=== PATIENT | female | born 1980 | race Caucasian/White ===

== ENCOUNTER 2020-12-25 02:45 | Inpatient (IN) | payer SELFPAY, OTHER ==
[2017-09-16 07:21] VITALS: BMI 44.9
[2020-12-25] VITALS (22 sets, daily range): BP systolic 106–139; BP diastolic 42–69; PULSE 71–95; RESP 14–16; TEMP 36.4–37.5; O2SAT 97–99; BMI 45.9
[2020-12-25] MEDS: Lactated Ringers 1,000 ML 50 ML IV (03:15)
[2020-12-25 03:50] LABS: Absolute Lymphocyte Count 2.24 X10^3/uL (0.83-4.51); Basophil# 0.02 X10^3/uL; Basophil% 0.2 % (0-1); Eosinophils% 0.9 % (0-5); Hematocrit 40.8 % (37-47); Hemoglobin 13.4 g/dL (12.0-15.0); Lymphocyte # 2.24 X10^3/ul (0.83-4.51); Lymphocyte % 19.9 % (19-41); Mean Corp Hgb Conc 32.8 g/dL (32-36); Mean Corpuscular Hgb 31.1 pg (27.0-32.0); Mean Corpuscular Volume 94.7 fL (81-99); Mean Platelet Vol. 10.8 fl (6.2-12.0); Monocyte# 0.74 X10^3/uL; Monocyte% 6.6 % (0-10); NRBC Flagged by Analyzer 0 % (0-5); Neutrophil # 8.02 X10^3/uL (2.7-7.7); Neutrophil % 71.4 % (47-70); Platelet Count 263 K/mm3 (150-450); RBC Distribution Width CV 13.4 % (11.6-14.6); RBC Distribution Width SD 46.2 fl (35.1-43.9); Red Blood Count 4.31 M/mm3 (4.2-5.4); White Blood Count 11.2 K/mm3 (4.4-11.0)
[2020-12-25] MEDS: Oxytocin 30 units/NS 500 ml 30 UNITS/500 ML IV.SOLN IV (05:17)
[2020-12-25] MEDS: Ondansetron 4 MG/2 ML Vial IV (09:16)
[2020-12-25] MEDS: Oxytocin 30 units/NS 500 ml 30 UNITS/500 ML IV.SOLN 334 UNITS IV (11:28)
[2020-12-25] MEDS: Methylergonovine 0.2 MG/ML Ampul IM (11:30)
--- NOTE | 2020-12-25 11:38 | PCM.OPRPT ---
Vaginal Delivery Maternal Presentation: Medically Indicated Induction Method of Induction: Pitocin Medical Reason for Induction: - - 2 vessel cord, advanced maternal age, maternal obesity w/ BMI 45 Amniotic Membrane Rupture Type: Artificial Amniotic Fluid Description: Clear Final MINAL: 12/29/20 Final MINAL Source: US <20 weeks Gestational age: 39 Weeks and 3 Days Date of Procedure: 12/25/20 Pre-Operative Diagnosis: labor Post-Operative Diagnosis: same Surgery/ Procedure Performed: Spontaneous Vaginal Delivery Type of Anesthesia: None Description of Procedure: A vigorous male infant was delivered [RADHA] over an intact perineum. The remainder the infant was delivered with maternal pushing and gentle traction only in less than 15 seconds. The Pitocin infusion was initiated for active management of the third stage. The cord was clamped and cut [after 1 minute]. The was attended to by the waiting nursing staff. The placenta was delivered spontaneously and intact. The cervix and vagina were intact. There was mild atony without hemorrhage. Some clots were removed from the lower uterine segment and fundal massage was performed. 1 dose of IM Methergine was given to prevent hemorrhage. Uterus was then remaining firm. Sponge and needle counts were correct. A vaginal sweep was completed by me. Delivery time: 1124 Presentation: RADHA Placental Delivery Description: Spontaneous Placenta Disposition: [facility] Cord Vessel Description: 2 Vessels Cord Entanglement: None Drain: - - none Estimated Blood Loss: 400 A gender: Male (1 minute): 8 (5 minute): 9 Episiotomy Description: None Laceration: None Medications given after delivery: IV Pitocin, IM Methergin - x1 for atony without hemorrhage Complications: None
--- NOTE | 2020-12-25 11:42 | HP.PCM_ITS ---
History Date of Admission: 09/16/17 Final MINAL: 12/29/20 Final MINAL Source: US <20 weeks Gestational age: 39 Weeks and 3 Days History of this : This is a 40 year-old, avid a 4 para 2-0-1-2 presents at 39-3/7 weeks complaining contractions. She was found to be in prodromal labor. She was admitted for induction. is complicated to date by advanced maternal age, maternal obesity, and a two-vessel umbilical cord. Allergies No Known Allergies Allergy (Verified 12/25/20 03:09) Home Medications: Home Medications Multivitamins,Therapeutic [Multivitamin] 1 tablet PO DAILY 03/26/15 Pnv No.95/Ferrous Fum/Folic AC [ Caplet] 1 tablet PO DAILY 12/25/20 Smoking Status: Never smoker History Past Pregnancies: Past Pregnancies Delivery Date Name GA/ Weeks Outcome Route Wt Infant Sex Labor Length Anesthesia Delivery Location Provider FOB Expected Delivery Method: Spontaneous Vaginal Review of Systems Constitutional: Denies: Chills, Fever, Night Sweats Eyes: Denies: Blurred vision Cardiovascular: Denies: Chest Pain Respiratory: Denies: Cough, Shortness of Breath Neurological: Denies: Blurred vision, Double vision, Change in Speech, Slurred speech, Confusion Physical Exam Vitals: Vital Signs Temp Pulse BP Pulse Ox 99.5 F H 71 117/56 L 99 12/25/20 07:12 12/25/20 10:12 12/25/20 11:41 12/25/20 07:12 General: Alert, Cooperative, No apparent distress Cardiovascular: Regular rate Lungs: Normal air movement Abdomen: Soft, Non Tender, Non-Distended, Gravid, Appropriate for Gestational Age Extremities:: Other - edema 2+ Neurological: Cranial nerves II-XII grossly intact, Muscle tone normal. Negative for: Slurred Speech LABORATORY CLERK: Normal external genitalia Estimated gestational size: Appropriate for gestational size Presentation: Cephalic Assessment/Plan This is a 40 year-old, 4 para 2-0-1-2 presents at 39-3/7 weeks in prodromal labor. Induction of labor was performed with Pitocin. Estimated weight is less than 4500 g and pelvis clinically adequate to expect vaginal delivery. Group B strep prophylaxis is initiated. Have epidural if desires.
[2020-12-25] MEDS: Ibuprofen 600 MG Tablet PO (13:30)
[2020-12-25] MEDS: Acetaminophen 500 MG Tablet 1000 MG PO (21:09)
[2020-12-26 03:32] VITALS: BP 100/48; PULSE 70; RESP 16; TEMP 36.3
[2020-12-26] MEDS: Ibuprofen 600 MG Tablet PO (05:00)
[2020-12-26 08:28] VITALS: BP 117/52; PULSE 72; RESP 16; TEMP 36.4
--- NOTE | 2020-12-26 08:58 | PCM.PN.OB ---
Subjective: Patient seen at bedside. Feeling well. Denies any pain. Bottle feeding . Ambulating and voiding without difficulty. Desires discharge home today. - Physical Exam Vitals/I&O's: Vital Signs Temp Pulse Resp BP Pulse Ox 97.5 F L 72 16 117/52 L 99 12/26/20 08:28 12/26/20 08:28 12/26/20 08:28 12/26/20 08:28 12/25/20 07:12 Oxygen Delivery Method Room Air Weight: 251 lb 3.2 oz Body Mass Index (BMI) 45.9 Intake and Output for Last 24 Hours 12/24/20 12/25/20 12/26/20 23:59 23:59 23:59 Intake Total 1156.05 / 1156.05 Output Total 600 / 600 Balance 556.05 / 556.05 General: Alert, Oriented x3 HEENT: Atraumatic Oral: Moist Mucosa Neck: Supple Lungs: Normal air movement Cardiovascular: Regular rate Abdomen: Soft, Non Tender Extremities: No Calf Tenderness Skin: No rashes Current Medications Acetaminophen (Acetaminophen 500 Mg Tablet) 1,000 mg PO Q8H PRN PRN PRN Reason: Pain Score 1-10 Last Admin: 12/25/20 21:09 Dose: 1,000 mg Documented by: Bisacodyl (Bisacodyl 10 Mg Suppository) 10 mg RC UD PRN PRN Reason: If no BM Dibucaine (Dibucaine 30 Gm Tube) 1 applic TOPICAL TID PRN PRN; Protocol PRN Reason: Discomfort Hydrocortisone (Hydrocortisone 2.5% Crm) 1 applic TOPICAL TID PRN PRN; Protocol PRN Reason: Discomfort Ibuprofen (Ibuprofen 600 Mg Tablet) 600 mg PO Q6H PRN PRN PRN Reason: Pain Score 1-10 Last Admin: 12/26/20 05:00 Dose: 600 mg Documented by: Methylergonovine Maleate (Methylergonovine 0.2 Mg/Ml Ampul) 0.2 mg IM X1 PRN PRN Reason: Excess bleeding/uterine atony Ondansetron HCl (Ondansetron 4 Mg/2 Ml Vial) 4 mg IV Q4H PRN PRN PRN Reason: Nausea Multivit/Folic Acid/Iron ( Vits Tablet) 1 tablet PO DAILY@1200 RENETTA Senna/Docusate Sodium (Senna/Docusate Sodium 1 Tablet) 1 - 2 tablet PO DAILY PRN PRN PRN Reason: Constipation Simethicone (Simethicone 80 Mg Tablet) 80 mg PO PCHS PRN PRN Reason: Indigestion/Stomach pain Sodium Chloride (0.9% Saline Lock 10 Ml Syringe) 5 - 15 ml IV UD PRN PRN Reason: SALINE FLUSH Medical Necessity - Tobacco Use Smoking Status: Never smoker Assessment/Plan PPD 1 Routine care Discharge home
--- NOTE | 2020-12-26 09:02 | DCINST_ITS ---
Discharge Diet: No Restrictions May resume sexual activity in: 6-8 weeks Additional Instructions: If you experience any of the following, contact your healthcare provider. * Bleeding that soaks a pad every hour for 2 hours * Fever 100.4 or higher * Unrelieved incision or abdominal pain * Swelling, redness, discharge or bleeding from your incision or episiotomy site * Your incision begins to separate * Problems urinating (including inability to urinate or burning while urinating). * Visual changes * Severe headache * Flu-like symptoms * Pain or redness in one of both of your breasts * Pain, warmth, tenderness or swelling in your legs, especially the calf area * Frequent nausea and vomiting * Symptoms of depression or anxiety If you experience any of the following, call 911 or go to the nearest Emergency Room. * Chest pain * Problems breathing * Seizure activity * Partial or complete paralysis of a body part, slurred speech, weakness or drooping of the face, or a sudden inability to walk or hold your balance Allergies/Adverse Reactions: Allergies No Known Allergies Allergy (Verified 12/25/20 03:09) Medications to take at Discharge Multivitamins,Therapeutic [Multivitamin] 1 tablet PO DAILY 03/26/15 Pnv No.95/Ferrous Fum/Folic AC [ Caplet] 1 tablet PO DAILY 12/25/20 Primary Care Physician: Care Physician,No Primary [Primary Care Provider] - Test Results: Test results from this visit will be discussed in further detail at your follow- up appointment, if applicable.
--- NOTE | 2020-12-26 09:02 | PCM.DCVAG ---
Discharge Diet: No Restrictions May resume sexual activity in: 6-8 weeks Additional Instructions: If you experience any of the following, contact your healthcare provider. Bleeding that soaks a pad every hour for 2 hours Fever 100.4 or higher Unrelieved incision or abdominal pain Swelling, redness, discharge or bleeding from your incision or episiotomy site Your incision begins to separate Problems urinating (including inability to urinate or burning while urinating). Visual changes Severe headache Flu-like symptoms Pain or redness in one of both of your breasts Pain, warmth, tenderness or swelling in your legs, especially the calf area Frequent nausea and vomiting Symptoms of depression or anxiety If you experience any of the following, call 911 or go to the nearest Emergency Room. Chest pain Problems breathing Seizure activity Partial or complete paralysis of a body part, slurred speech, weakness or drooping of the face, or a sudden inability to walk or hold your balance Allergies/Adverse Reactions: Allergies No Known Allergies Allergy (Verified 12/25/20 03:09) Medications to take at Discharge Multivitamins,Therapeutic [Multivitamin] 1 tablet PO DAILY 03/26/15 Pnv No.95/Ferrous Fum/Folic AC [ Caplet] 1 tablet PO DAILY 12/25/20 Primary Care Physician: Care Physician,No Primary [Primary Care Provider] - Test Results: Test results from this visit will be discussed in further detail at your follow-up appointment, if applicable.
[2020-12-26] MEDS: Prenatal Vits Tablet 1 TABLET PO (11:37)
[2020-12-26 11:38] VITALS: BP 105/48; RESP 18; TEMP 36.4; O2SAT 76
== END 2020-12-26 15:35 | disposition home or self-care (01) | DRG 807 ==
PROVIDERS: Obstetrics & Gynecology; Admitting Provider Obstetrics & Gynecology; Visit Provider Obstetrics & Gynecology
DX: O99.214 Obesity complicating childbirth (principal); Z37.0 Single live birth; E66.9 Obesity, unspecified; O75.89 Other specified complications of labor and delivery; Z3A.39 39 weeks gestation of pregnancy
CPT/HCPCS: 59025; 59050; 85025; 86850; 86900; 86901; 99218; J7120; G0378; J2405

== ENCOUNTER 2023-03-15 06:40 | Inpatient (IN) | payer SELFPAY, OTHER ==
[2023-03-15] VITALS (17 sets, daily range): BP systolic 117–177; BP diastolic 51–79; PULSE 76–99; RESP 16; TEMP 36.3–37.3; O2SAT 95–100; BMI 46.3
[2023-03-15] MEDS: Lactated Ringers 1,000 ML 50 ML IV (07:40)
[2023-03-15 07:53] LABS: Absolute Lymphocyte Count 2.01 X10^3/uL (0.83-4.51); Absolute Neutrophil Count 8.6 X10^3/uL (2.0-7.7); Basophil# 0.03 X10^3/uL; Basophil% 0.3 % (0-1); Eosinophil# 0.09 X10^3/uL; Eosinophils% 0.8 % (0-5); Hematocrit 39.3 % (37-47); Hemoglobin 13.1 g/dL (12.0-15.0); Lymphocyte # 2.01 X10^3/ul (0.83-4.51); Mean Corp Hgb Conc 33.3 g/dL (32-36); Mean Corpuscular Hgb 31.3 pg (27.0-32.0); Mean Corpuscular Volume 93.8 fL (81-99); Mean Platelet Vol. 11.2 fl (6.2-12.0); Monocyte# 0.84 X10^3/uL; Monocyte% 7.1 % (0-10); NRBC Flagged by Analyzer 0 % (0-5); Neutrophil # 8.64 X10^3/uL (2.7-7.7); Neutrophil % 73.3 % (47-70); Platelet Count 248 K/mm3 (150-450); RBC Distribution Width CV 13.6 % (11.6-14.6); RBC Distribution Width SD 46.7 fl (35.1-43.9); Red Blood Count 4.19 M/mm3 (4.2-5.4); White Blood Count 11.8 K/mm3 (4.4-11.0)
[2023-03-15] MEDS: Oxytocin 15 Units/NS 250ml 15 UNITS/250 ML IV.SOLN 2 UNITS IV (08:55)
[2023-03-15 09:04] LABS: Syphilis Antibodies Non-reactive
[2023-03-15] MEDS: Mag Hydrox/Al Hydrox/Simeth 30 ML UDC PO (10:09)
--- NOTE | 2023-03-15 11:07 | PCM.HP.OB ---
HPI - General General Date of Admission: 03/15/23 Date of Service: 03/15/23 Chief Complaint: induction HPI Narrative ANTON ARTEAGA, is a 43 F who presents for induction of labor. No VB/LOF. Some irreg ctxs. Maternal Data Information Final MINAL: 03/20/23 Gestational age: 39 /27 [facility] Medical History (Updated 03/15/23 @ 11:[address] Deanna Amaya MD) Advanced maternal age (AMA) in Obesity Uterine fibroid Home Medications multivitamin with folic acid 400 mcg tablet (Thera) 1 tab PO DAILY 03/26/15 [History Last Taken 09/15/17 08:00 1] vit no.95-ferrous fumarate 28 mg-folic acid 800 mcg tablet 1 tablet PO DAILY Check with primary doctor 12/25/20 [History Last Taken 03/14/23] Allergy/AdvReac Type Severity Reaction Status Date / Time No Known Allergies Allergy Verified 12/25/20 03:09 Family History (Updated 03/15/23 @ 07:56 by Keli Garcia) Other Rheumatoid arthritis Social History Smoking Status: Never smoker History Elective abortions Hx Para 3 Spontaneous abortions Hx # Term Pregnancies Ectopic pregnancies Hx # Pregnancies Multiple births # of living children ROS Constitutional Constitutional: Denies fatigue, fever(s) or malaise Eyes Eyes: Denies change in vision ENT HEENT: Denies dizziness or headache(s) Cardiovascular Cardiovascular: Denies chest pain, dyspnea or lightheadedness Respiratory/Chest Respiratory/Chest: Denies cough or dyspnea Gastrointestinal Gastrointestinal: Denies change in bowel habits Genitourinary Genitourinary: Denies burning urination or genital lesions Integumentary Integumentary: Denies rash Neurologic Neurologic: Denies confusion, dizziness, headache(s), numbness or weakness Vital Signs Vital Signs Vital Signs: 03/15/23 07:24 03/15/23 07:25 03/15/23 07:25 Temperature Temperature Source Temporal Pulse Rate 79 Blood Pressure 128/74 H BP Systolic 128 BP Diastolic 74 Pulse Ox 03/15/23 07:24 03/15/23 07:24 03/15/23 08:32 Temperature 97.9 F Temperature Source Pulse Rate Blood Pressure 121/63 H BP Systolic 121 BP Diastolic 63 Pulse Ox 97 03/15/23 08:32 03/15/23 08:31 03/15/23 09:51 Temperature Temperature Source Pulse Rate 78 Blood Pressure 126/64 H BP Systolic 126 BP Diastolic 64 Pulse Ox 97 03/15/23 09:51 03/15/23 09:51 03/15/23 09:51 Temperature Temperature Source Temporal Pulse Rate 76 78 Blood Pressure BP Systolic BP Diastolic Pulse Ox 03/15/23 09:51 03/15/23 09:51 03/15/23 10:42 Temperature 97.8 F Temperature Source Pulse Rate 99 Blood Pressure BP Systolic BP Diastolic Pulse Ox 97 03/15/23 10:42 03/15/23 10:42 03/15/23 10:52 Temperature Temperature Source Temporal Pulse Rate Blood Pressure 118/59 L BP Systolic 118 BP Diastolic 59 Pulse Ox 100 03/15/23 10:52 03/15/23 10:42 Temperature 97.4 F L Temperature Source Pulse Rate 77 Blood Pressure BP Systolic BP Diastolic Pulse Ox Weight Weight: 114.816 kg Body Mass Index (BMI) 46.3 Physical Exam Const alert and no apparent distress General Appearance: cooperative HEENT normocephalic Resp normal respiratory effort Cardio regular rate GI soft to palpation GI Narrative: gravid, nontender, appropriate for gestational age Extremity no calf tenderness General Extremity: edema Skin no wounds Rashes: No rashes noted Psych activity/motor behavior normal Labs Labs Labs: Blood Type A POSITIVE Antibody Screen NEGATIVE Hct 39.3 % (37-47) Hgb 13.1 g/dL (12.0-15.0) Syphilis Total Ab Non-reactive Rhogam given: No Assessment & Plan (1) Advanced maternal age (AMA), 40 years or greater: PLAN: Response to tenderness to induction of labor were discussed with patient, her questions were answered to her satisfaction she desires to proceed. Estimated weight is less than 4500 g clinically and pelvis clinically adequate to expect vaginal delivery. When I arrived by ultrasound the patient and the shoulder was presenting. With gentle pressure on the buttocks and lateral traction on the vertex I was able to easily move the head over over the cervix. Cervix was then 5 cm and 60% effaced and -3 station. With maternal Valsalva and some gentle fundal traction I was able to rupture the membranes with moderate amount of clear fluid. Patient was then pushed put in high Fowlers to keep the head down. Discussed with the patient and her there is a possibility of the head moving away and then she would require section. May have routine pain management options as desired and needed. (2) 39 weeks gestation of : (3) Maternal obesity syndrome in third trimester: (4) Adult BMI 45.0-49.9 kg/sq m:
--- NOTE | 2023-03-15 11:30 | EX.PCM.OBRPT ---
Assessment & Plan (1) Adult BMI 45.0-49.9 kg/sq m: (2) Maternal obesity syndrome in third trimester: (3) 39 weeks gestation of : (4) Advanced maternal age (AMA), 40 years or greater: (5) (spontaneous vaginal delivery): Maternal Data Information Final MINAL: 03/20/23 Gestational age: 39 2/7 Vaginal Delivery Maternal Presentation Maternal Presentation: Medically Indicated Induction Type of Induction: Pitocin and Amniotomy Operative Information Date of Procedure: 03/15/23 Pre-Operative Diagnosis: Post-Operative Diagnosis: same Surgery / Procedure Performed: Spontaneous Vaginal Delivery Type of Anesthesia: None Special Medications: none Drain: - (none) Estimated Blood Loss: 300 Time of Delivery: 11:23 Findings Description of Procedure: A vigorous female infant was delivered RADHA over an intact perineum. The remainder the infant was delivered with maternal pushing and gentle traction only in less than 15 seconds. The Pitocin infusion was initiated for active management of the third stage. The cord was clamped and cut after cord pulsations ceased. The infant was attended to by the waiting nursing staff. The placenta was delivered spontaneously and intact. The cervix and vagina were intact. Sponge and needle counts were correct. A vaginal sweep was completed by me. Presentation: RADHA Amniotic Membrane Rupture Type: Artificial Amniotic Fluid Description: Clear Placental Delivery Description: Spontaneous Placenta Disposition: [facility] Cord Vessel Description: 3 Vessels Cord Entanglement: None Infant A Gender: Female (Yu) (1 minute): 8 (5 minute): 9 Delayed Cord Clamping: Yes Post Vaginal Delivery Medications Given After Delivery: IV Pitocin Episiotomy Description: None Laceration: None Complication Complications: None
[2023-03-15] MEDS: Oxytocin 15 Units/NS 250ml 15 UNITS/250 ML IV.SOLN 83 UNITS IV (12:50)
[2023-03-16] MEDS: Acetaminophen 500 MG Tablet 1000 MG PO (00:13)
[2023-03-16 00:14] VITALS: BP 137/72; PULSE 78; RESP 16; TEMP 36.7
[2023-03-16 04:12] VITALS: BP 112/62; PULSE 73; RESP 16; TEMP 36.6
[2023-03-16 06:01] LABS: Hematocrit 38.3 % (37-47); Hemoglobin 12.6 g/dL (12.0-15.0); Mean Corp Hgb Conc 32.9 g/dL (32-36); Mean Corpuscular Hgb 31.3 pg (27.0-32.0); Mean Corpuscular Volume 95.3 fL (81-99); Platelet Count 247 K/mm3 (150-450); RBC Distribution Width CV 13.8 % (11.6-14.6); RBC Distribution Width SD 48.1 fl (35.1-43.9); Red Blood Count 4.02 M/mm3 (4.2-5.4); White Blood Count 14.3 K/mm3 (4.4-11.0)
[2023-03-16 08:08] VITALS: BP 117/51; PULSE 71; RESP 14; TEMP 36.4; O2SAT 96
--- NOTE | 2023-03-16 08:47 | PCM.PN.OB ---
Subjective Subjective Denies complaints Objective Data Objective Data Vital Signs: Vital Signs Temp Pulse Resp BP Pulse Ox O2 Del Method 97.6 F L 71 14 117/51 L 96 Room Air 03/16/23 08:08 03/16/23 08:08 03/16/23 08:08 03/16/23 08:08 03/16/23 08:08 03/16/23 08:08 Oxygen Delivery Method Room Air Weight: 253 lb 2 oz Body Mass Index (BMI) 46.3 Intake & Output: Intake and Output for Last 24 Hours 03/14/23 03/15/23 03/16/23 23:59 23:59 23:59 Intake Total 756.17 / 756.17 Output Total 1200 / 1200 Balance -443.83 / -443.83 Lab / Micro Data 03/16/23 05:47 Labs: Laboratory Results - last 24 hr 03/15/23 07:35: Syphilis Total Ab Non-reactive, Blood Type A POSITIVE, Antibody Screen NEGATIVE 03/16/23 05:47: WBC 14.3 H, RBC 4.02 L, Hgb 12.6, Hct 38.3, MCV 95.3, MCH 31.3, MCHC 32.9, RDW Std Deviation 48.1 H, RDW Coeff of Gail 13.8, Plt Count 247, MPV 11.0 Physical Exam Const alert, oriented x3 and no apparent distress HEENT normocephalic GI soft to palpation, non-tender and non-distended GI Narrative: fundus firm, mid & below umbilicus Extremity normal to inspection and no calf tenderness Assessment & Plan (1) (spontaneous vaginal delivery): COMMENT: PPD#1 PLAN: Plan Routine PP care
[2023-03-16 14:16] VITALS: BP 124/57; PULSE 85; RESP 16; TEMP 36.4; O2SAT 96
[2023-03-16 19:50] VITALS: BP 89/62; PULSE 87; RESP 15; TEMP 36.8
[2023-03-17 01:47] VITALS: BP 113/47; PULSE 81; RESP 14; TEMP 36.5
--- NOTE | 2023-03-17 06:26 | PCM.PN.OB ---
Subjective Subjective Denies complaints Objective Data Objective Data Vital Signs: Vital Signs Temp Pulse Resp BP Pulse Ox O2 Del Method 97.7 F L 81 14 113/47 L 96 Room Air 03/17/23 01:47 03/17/23 01:47 03/17/23 01:47 03/17/23 01:47 03/16/23 14:16 03/17/23 01:47 Oxygen Delivery Method Room Air Weight: 253 lb 2 oz Body Mass Index (BMI) 46.3 Intake & Output: Intake and Output for Last 24 Hours 03/15/23 03/16/23 03/17/23 23:59 23:59 23:59 Intake Total 756.17 / 756.17 Output Total 1200 / 1200 Balance -443.83 / -443.83 Lab / Micro Data 03/16/23 05:47 Physical Exam Const alert, oriented x3 and no apparent distress HEENT normocephalic GI soft to palpation, non-tender and non-distended GI Narrative: fundus firm, mid & below umbilicus Extremity normal to inspection and no calf tenderness Assessment & Plan (1) (spontaneous vaginal delivery): COMMENT: PPD#2 PLAN: Plan D/c home
--- NOTE | 2023-03-17 06:27 | DCINST_ITS ---
Discharge Instructions Diet Discharge Diet: No restrictions Activity Discharge Activity: May Shower May resume sexual activity in: 6 weeks Weight Bearing Status: Weight bearing as tolerated Dressing / Incision Call your doctor if you observe: Fever of 101 or Higher, Coldness, Increased Pain, Change in Color, Inability to urinate, Inability to have a bowel movement, Using more than 1 pad per hour, Shortness of breath, Dizziness, Fainting spells, Chest pain, Increased palpitations (irregular heartbeat), Calf discomfort and Uncontrolled pain Follow Up Care Please Follow Up With: Deanna Amaya MD When: Follow up in 2 and 6 weeks for visits. Test Results: Test results from this visit will be discussed in further detail at your follow- up appointment, if applicable. Discharge Plan Admission Admit Date/Time: 03/15/23 06:40 Primary Reason for Your Visit: Vaginal delivery Attending Provider: Deanna Amaya Primary Care Provider: Care Physician,Ruth Primary Discharge Orders/Prescriptions Prescriptions: New acetaminophen 500 mg Tablet 1,000 mg PO Q6H PRN PRN (Reason: Pain 1-10 Or Fever) Qty: 0 0RF ibuprofen 600 mg Tablet 600 mg PO Q6H PRN PRN (Reason: Pain Score 1-3) Qty: 0 0RF Continued PNV cmb#95-ferrous fumarate-FA 1 EACH tablet 1 tablet PO DAILY Discontinued multivitamin with folic acid [Thera] 1 TABLET tablet 1 tab PO DAILY Referrals / Follow Up: Care Physician,No Primary [Primary Care Provider] - Disposition Disposition (needs filled in before D/C Order can be placed): Home, Self Care
[2023-03-17 09:03] VITALS: BP 130/59; PULSE 80; RESP 16; TEMP 36.6
== END 2023-03-17 09:08 | disposition home or self-care (01) | DRG 807 ==
PROVIDERS: Admitting Provider Obstetrics & Gynecology; Referring Provider Obstetrics & Gynecology; Visit Provider Obstetrics & Gynecology
DX: O99.213 Obesity complicating pregnancy, third trimester (principal); Z37.0 Single live birth; E66.8 Other obesity; Z3A.39 39 weeks gestation of pregnancy; O26.23 Pregnancy care for patient with recurrent pregnancy loss, third trimester
CPT/HCPCS: 59025; 59050; 85025; 85027; 86780; 86850; 86900; 86901; 99221; J7120; G0378